=== PATIENT | female | born 1995 ===

== ENCOUNTER 2018-01-01 18:44 | Emergency (ER) | payer OTHER ==
[2018-01-01 19:17] VITALS: BP 104/60
[2018-01-01] MEDS ORDERED: ACETAMINOPHEN 325 MG TABLET PO ONE ×2 (19:18→22:45)
--- NOTE | 2018-01-01 19:56 | ER Document Report ---
ED Medical Screen (RME) - General Chief Complaint: Fever Stated Complaint: FEVER Time Seen by Provider: 01/01/18 19:43 Mode of Arrival: Ambulatory Information source: Patient Notes: 22-year-old female presents with complaint of right flank pain that started 1 day prior to arrival and fever that started this morning. Patient reports that she had recent blood work that revealed that she was . Her last menstrual period was December 02, 2017. I have greeted and performed a rapid initial assessment of this patient. A comprehensive ED assessment and evaluation of the patient, analysis of test results and completion of medical decision making process we will be contacted by additional ED providers. PHYSICAL EXAMINATION: Vital signs reviewed-febrile, tachycardic GENERAL: Well-appearing, well-nourished and in no acute distress. LUNGS: No respiratory distress Musculoskeletal: Normal range of motion NEUROLOGICAL: Normal speech, normal gait. PSYCH: Normal mood, normal affect. SKIN: Warm, Dry, normal turgor, no rashes or lesions noted. TRAVEL OUTSIDE OF THE [place] IN LAST 30 DAYS: No - HPI Onset: Yesterday Onset/Duration: Gradual Quality of pain: Achy Associated Symptoms: Fever. denies: Vaginal bleeding Exacerbated by: Denies Relieved by: Denies Similar symptoms previously: No Recently seen / treated by doctor: No - Related Data Smoking: Non-smoker Frequency of alcohol use: None Drug Abuse: None Allergies/Adverse Reactions: latex Allergy (Verified 01/01/18 19:53) vancomycin Allergy (Verified 01/01/18 18:48) Past Medical History - Social History Chew tobacco use (# tins/day): No Frequency of alcohol use: None Drug Abuse: None Renal/ Medical History: Denies: Hx Peritoneal Dialysis Physical Exam - Vital signs Vitals: Temp Pulse Resp BP Pulse Ox 101.4 F H 133 H 24 H 104/60 100 01/01/18 19:15 01/01/18 19:15 01/01/18 19:15 01/01/18 19:15 01/01/18 19:15 Course - Vital Signs Vital signs: Temp Pulse Resp BP Pulse Ox 101.4 F H 133 H 24 H 104/60 100 01/01/18 19:15 01/01/18 19:15 01/01/18 19:15 01/01/18 19:15 01/01/18 19:15 Doctor's Discharge - Discharge Referrals: JULIAN ABRAMS MD [Primary Care Provider] - Follow up as needed
[2018-01-01 20:15] LABS: APPEARANCE,URINE CLEAR; BILIRUBIN,URINE NEGATIVE (NEGATIVE); COLOR,URINE YELLOW; GLUCOSE, URINE NEGATIVE (NEGATIVE); KETONES,URINE 20 mg/dL (NEGATIVE); LEUKOCYTE ESTERASE,URINE NEGATIVE (NEGATIVE); NITRITE,URINE NEGATIVE (NEGATIVE); PROTEIN,URINE NEGATIVE (NEGATIVE); URINE SPECIFIC GRAVITY 1.005; UROBILINOGEN,URINE NEGATIVE mg/dL (<2.0)
--- NOTE | 2018-01-01 21:44 | ER Document Report ---
ED General - General Chief Complaint: Fever Stated Complaint: FEVER Time Seen by Provider: 01/01/18 19:43 Mode of Arrival: Ambulatory Information source: Patient Notes: Patient is a 22-year-old female who presents today with a fever that started last night at 1 a.m. She states that she has body aches all over including her back, ribs, and legs. She specifically has right upper quadrant abdominal pain. She states that the Tylenol has helped with the pain. But her right upper quadrant still hurts upon palpation. TRAVEL OUTSIDE OF THE [place] IN LAST 30 DAYS: No - Related Data Allergies/Adverse Reactions: latex Allergy (Verified 01/01/18 19:53) vancomycin Allergy (Verified 01/01/18 18:48) Past Medical History - General Information source: Patient - Social History Smoking Status: Never Smoker Chew tobacco use (# tins/day): No Frequency of alcohol use: None Drug Abuse: None Lives with: Alone Family History: Other - Mother has history of Gallbladder problems Patient has suicidal ideation: No Patient has homicidal ideation: No Renal/ Medical History: Denies: Hx Peritoneal Dialysis Review of Systems - Review of Systems Constitutional: See HPI Gastrointestinal: See HPI Physical Exam - Vital signs Vitals: Temp Pulse Resp BP Pulse Ox 101.4 F H 133 H 24 H 104/60 100 01/01/18 19:15 01/01/18 19:15 01/01/18 19:15 01/01/18 19:15 01/01/18 19:15 - General General appearance: Alert - HEENT Head: Normocephalic Eyes: Normal Conjunctiva: Normal Ears: Normal External canal: Normal Tympanic membrane: Normal Sinus: Normal Nasal: Clear rhinorrhea Mucous membranes: Moist Pharynx: Erythema Neck: Anterior cervical chain - Respiratory Respiratory status: No respiratory distress Chest status: Nontender Breath sounds: Normal Chest palpation: Normal - Cardiovascular Pulses: Normal: Radial, Dorsalis pedis Course - Re-evaluation Re-evalutation: 01/01/18 21:45 Patient at this time looks overall well in appearance despite nasal congestion noted when speaking. Patient states that her body aches all over, but is feeling better with Tylenol. She states that Tylenol is the only thing that helps her feel better. She also states that she has been increasing her fluid intake. She states that she has been coughing up green mucus primarily in the morning, but continues to cough throughout the day. She was seen by yesterday, where she found out she was 5 weeks . She denies any bleeding, cramping, or vaginal discharge. Do not suspect any pelvic pathology at this time. Patient denies nuchal rigidity and I do not suspect that patient has meningitis. 01/01/18 22:30 nursing staff notified me of increased temperature of 102. Discussion of a chest x-ray to rule out pneumonia and exposure to radiation while being was discussed in detail. Patient refused to have chest x- ray done at this time. Patient has a leukocytosis of 17,000. 01/01/18 23:45 Labs and right upper quadrant ultrasound results were discussed with the patient. I do not suspect any abdominal pathology at this time. 01/02/18 00:03 Patient was reevaluated with a heart rate of 113 and a temperature of 102.7. P.o. fluid encouraged to help with patient's tachycardia and fever. Will reevaluate vital signs. Pneumonia is suspected at this time, but unfortunately we can not diagnose this due to patient refusing chest x-ray. 01/02/18 00:43 Patient's vital signs have improved with a heart rate of 105 and a temperature of 99.7. Patient verbally instructed on very close follow-up visit with primary care doctor. - Vital Signs Vital signs: Temp Pulse Resp BP Pulse Ox 101.4 F H 133 H 24 H 104/60 100 01/01/18 19:15 01/01/18 19:15 01/01/18 19:15 01/01/18 19:15 01/01/18 19:15 - Laboratory Result Diagrams: 01/01/18 22:02 01/01/18 22:02 Laboratory results interpreted by me: 01/01/18 01/01/18 01/01/18 20:00 20:00 22:02 WBC 17.2 H Seg Neutrophils % 86.2 H Lymphocytes % 7.8 L Absolute Neutrophils 14.8 H Total Bilirubin Direct Bilirubin Beta HCG, Quant 625.44 H Urine Ketones 20 H Urine Blood SMALL H 01/01/18 22:02 WBC Seg Neutrophils % Lymphocytes % Absolute Neutrophils Total Bilirubin 3.5 H Direct Bilirubin 0.7 H Beta HCG, Quant Urine Ketones Urine Blood Discharge - Discharge Clinical Impression: Productive cough, Generalized body aches Fever Qualifiers: Fever type: unspecified Qualified Code(s): R50.9 - Fever, unspecified Condition: Stable Disposition: HOME, SELF-CARE Additional Instructions: Please follow-up with your primary care provider. Please take Tylenol 975 mg every 6 hours as needed for fever. Follow-up with your DEPENDENCY COUNSELOR for care. You have been prescribed azithromycin, and antibiotic. Please finish all your antibiotics as prescribed. If you feel you are not getting better, have shortness of breath, chest pain, or feeling worse than you have tonight, please return to the emergency department. Prescriptions: Azithromycin 250 mg PO DAILY #4 tablet Referrals: JULIAN ABRAMS MD [Primary Care Provider] - Follow up as needed
[2018-01-01 22:28] LABS: A TYPE INFLUENZA AG NEGATIVE (NEGATIVE); B INFLUENZA AG NEGATIVE (NEGATIVE)
[2018-01-01 22:31] LABS: ABSOLUTE LYMPHOCYTES (AUTO) 1.3 10^3/uL (0.5-4.7); ABSOLUTE NEUT (AUTO) 14.8 10^3/uL (1.7-8.2); BASOPHILS % (AUTO) 0.2 % (0-2); HEMATOCRIT 42.9 % (36.0-47.0); HEMOGLOBIN 15.1 g/dL (12.0-15.5); LYMPHOCYTES % (AUTO) 7.8 % (13-45); MEAN CORPUSCULAR HEMOGLOBIN 31.4 pg (27.0-33.4); MEAN CORPUSCULAR HGB CONC 35.2 g/dL (32.0-36.0); MEAN CORPUSCULAR VOLUME 89 fl (80-97); MONOCYTES % (AUTO) 5.8 % (3-13); PLATELET COUNT 233 10^3/uL (150-450); RED BLOOD COUNT 4.82 10^6/uL (3.72-5.28); RED CELL DISTRIBUTION WIDTH 12.2 % (11.5-14.0); SEGMENTED NEUTROPHILS % (AUTO) 86.2 % (42-78); TOTAL CELLS COUNTED % (AUTO) 100 %; WHITE BLOOD COUNT 17.2 10^3/uL (4.0-10.5)
[2018-01-01 22:45] LABS: ALANINE AMINOTRANSFERASE 26 U/L (9-52); ALBUMIN 4.8 g/dL (3.5-5.0); ALKALINE PHOSPHATASE 59 U/L (38-126); ANION GAP 14 (5-19); ASPARTATE AMINO TRANSFERASE 19 U/L (14-36); BILIRUBIN,DIRECT 0.7 mg/dL (0.0-0.4); BILIRUBIN,TOTAL 3.5 mg/dL (0.2-1.3); BLOOD UREA NITROGEN 7 mg/dL (7-20); CALCIUM 10.2 mg/dL (8.4-10.2); CARBON DIOXIDE 25 mmol/L (22-30); CHLORIDE 98 mmol/L (98-107); GLUCOSE 101 mg/dL (75-110); LIPASE 25.9 U/L (23-300); POTASSIUM 4.3 mmol/L (3.6-5.0); SODIUM 137.2 mmol/L (137-145); TOTAL PROTEIN 8.1 g/dL (6.3-8.2)
--- NOTE | 2018-01-01 23:27 | RADIOLOGY REPORT (SQ) ---
EXAM DESCRIPTION: US ABDOMEN LIMITED COMPLETED DATE/TME: 01/01/2018 21:56 CLINICAL HISTORY: 22 years, Female, RUQ pain Findings: The liver is unremarkable with no focal lesions. No significant biliary dilatation with CBD measuring 2 mm. Gallbladder is unremarkable with no evidence for calculus, wall thickening or pericholecystic fluid. No sonographic Elizalde sign. The aorta and IVC are within normal limits. The pancreas is unremarkable. Portal vein demonstrates hepatopedal flow. Right kidney does not demonstrate hydronephrosis. No right upper quadrant ascites. IMPRESSION: No evidence for cholelithiasis or cholecystitis.
[2018-01-02] MEDS ORDERED: AZITHROMYCIN 250 MG TABLET PO ONE (00:58)
== END 2018-01-02 01:41 | disposition home or self-care (01) ==
LOC: ER 18:44
DX: R50.9 Fever, unspecified (principal); R10.11 Right upper quadrant pain; M79.10 Myalgia, unspecified site; R05 Cough; Z91.040 Latex allergy status; Z88.3 Allergy status to other anti-infective agents
CPT/HCPCS: 36415; 76705; 80053; 81001; 83690; 84702; 85025; 87804; 99284